=== PATIENT | female | born 1980 | race Caucasian/White ===

== ENCOUNTER → 2023-10-08 | Outpatient (CLI) | payer BC ==
--- NOTE | 2023-10-09 12:44 | MM ---
Reason for Exam: Screening (asymptomatic). Last mammogram was performed 13 year(s) and 0 month(s) ago. Patient History: Menarche at age 14. First Full-Term at age 25. Patient used Hormonal Contraceptives for 1 year. Last menstrual period: 09/08/2023 Risk Values: Renée 5 year model risk: 0.6%. NCI Lifetime model risk: 8.9%. Prior Study Comparison: 10/08/2010 Bilateral Diagnostic Mammogram, [facility]. Tissue Density: The breasts are heterogeneously dense, which may obscure small masses. Findings: Analyzed By CAD. There is no suspicious group of microcalcifications or new suspicious mass in either breast. Benign appearing calcifications. Overall Assessment: Benign, BI-RAD 2 Management: Screening Mammogram of both breasts in 1 year. . Patient should continue monthly self-breast exams. A clinical breast exam by your physician is recommended on an annual basis. This exam should not preclude additional follow-up of suspicious palpable abnormalities. Note on Renée scores and lifetime risk: 1. A Renée score greater than 3% is considered moderate risk. If this is the case, consider specialist referral to assess eligibility for a risk reducing agent. 2. If overall lifetime risk for the development of breast cancer is 20% or higher, the patient may qualify for future screening with alternating mammogram and breast MRI. Electronically signed and approved by: Jose Juarez M.D. Radiologis
== END | disposition home or self-care (01) ==
LOC: RADMAMWWP 09:43
PROVIDERS: ATTEND Obstetrics & Gynecology
DX: Z12.31 Encounter for screening mammogram for malignant neoplasm of breast (principal)
CPT/HCPCS: 77063; 77067